=== PATIENT | female | born 1980 | race Caucasian/White ===

== ENCOUNTER 2022-09-04 16:36 | Outpatient (CLI) | payer BC, SELFPAY | END 2022-09-04 16:37 | disposition home or self-care (01) | LOC: NFLDREF 09-07 04:57 | PROVIDERS: PCP Family Medicine; Referring Provider Family Medicine; Visit Provider Student in an Organized Health Care Education/Training Program | DX: R10.9 Unspecified abdominal pain (principal); N39.0 Urinary tract infection, site not specified; R07.9 Chest pain, unspecified | CPT/HCPCS: 87086 ==

== ENCOUNTER 2023-12-06 07:31 | Outpatient (CLI) | payer BC, SELFPAY ==
--- NOTE | 2023-12-06 07:45 | CRLHL7_ITS ---
For Patients: As a result of the Century Cures Act, medical imaging exams and procedure reports are released immediately into your electronic medical record. You may view this report before your referring provider. If you have questions, please contact your health care provider. BILATERAL DIAGNOSTIC MAMMOGRAM WITH COMPUTER-AIDED DETECTION AND TOMOSYNTHESIS LEFT ULTRASOUND CLINICAL HISTORY: LEFT breast lump. COMPARISON: None TECHNIQUE: Digital BILATERAL mammogram in 4 projections with computer-aided detection. Tomosynthesis was used in this interpretation. Real-time ultrasound imaging of LEFT breast with imaging documentation. BREAST COMPOSITION: Heterogeneously dense. FINDINGS: 3D CC/MLO bilateral mammogram images submitted. BILATERAL fibrocystic changes are present, LEFT greater than RIGHT. No suspicious masses or architectural distortion. No suspicious calcifications or adenopathy. Targeted LEFT breast ultrasound performed at 1 o`clock 7 cm from the nipple. Simple anechoic cyst is present with increased through transmission measuring 2.9 x 1.6 x 2.9 cm. No suspicious findings. IMPRESSION: Benign cyst left breast 1 o`clock 7 cm from the nipple measuring 2.9 cm. No evidence of malignancy. RECOMMENDATIONS: Annual BILATERAL screening mammography. BI-RADS Category 2: Benign Results and recommendations discussed with the patient. A lay language report of this examination will be provided to the patient. Dictated by Alex Yost MD @ 12/06/2023 8:59:04 AM TOD/jay DW/Dictated by: Alex Yost MD @ 12/06/2023 8:59:00 AM (Electronically Signed)
--- NOTE | 2023-12-06 08:15 | CRLHL7_ITS ---
For Patients: As a result of the Century Cures Act, medical imaging exams and procedure reports are released immediately into your electronic medical record. You may view this report before your referring provider. If you have questions, please contact your health care provider. Please see BILATERAL diagnostic mammogram/LEFT breast ultrasound combined report. DM:jay 12/06/2023 DW/Dictated by: Alex Yost MD @ 12/06/2023 8:59:00 AM (Electronically Signed)
== END 2023-12-06 07:32 | disposition home or self-care (01) ==
LOC: MAMMO 07:32
PROVIDERS: PCP Family Medicine; Visit Provider Obstetrics & Gynecology
DX: N63.20 Unspecified lump in the left breast, unspecified quadrant (principal); N60.02 Solitary cyst of left breast; R92.2 Inconclusive mammogram
CPT/HCPCS: 76642; 77066; G0279